=== PATIENT | male | born 1995 | race Caucasian/White ===

== ENCOUNTER 2017-02-01 20:56 | Emergency (ER) | payer MEDICAID ==
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
[2017-02-01 21:08] VITALS: BP 136/113; PULSE 102; RESP 24; TEMP 98.8; O2SAT 94
== END 2017-02-01 21:18 | disposition home or self-care (01) ==
LOC: EDUNIT#
DX: T75.4XXA Electrocution, initial encounter (principal); F10.129 Alcohol abuse with intoxication, unspecified